=== PATIENT | male | born 2000 | race Hispanic/Latino ===

== ENCOUNTER 2020-05-22 08:44 | Emergency (ER) | payer SELFPAY, OTHER ==
--- NOTE | 2020-05-22 11:01 | RAD REPORT ---
EXAM DESCRIPTION: Meryl Single View05/22/2020 10:54 am CLINICAL HISTORY: cough COMPARISON: 2010 FINDINGS: The lungs appear clear of acute infiltrate. The heart is normal size IMPRESSION: No acute abnormalities displayed
--- NOTE | 2020-05-22 11:09 | ER ---
Nurse's Notes [facility] Name: Jan Eugene Age: 19 yrs Sex: Male : 2000 Arrival Date: 05/22/2020 Time: 08:48 Bed 13 Private MD: Diagnosis: Acute upper respiratory infection, unspecified Presentation: 05/22 08:50 Chief complaint:. Chief complaint: Patient states: cough, shortness of breath on dm5 exertion, chest pain with deep inspiration, malaise, fever for 8 days. Coronavirus screen: Patient reports a cough. Patient reports shortness of breath or difficulty breathing. Patient reports a measured and/or subjective temperature greater than 100.4F. Patient denies travel on a cruise ship or to a country the [facility] currently lists as an affected area. Patient denies contact with known and/or suspected case of COVID-19. Ebola Screen: Patient negative for fever greater than or equal to 101.5 degrees Fahrenheit, and additional compatible Ebola Virus Disease symptoms Patient denies exposure to infectious person. Patient denies travel to an Ebola-affected area in the 21 days before illness onset. No symptoms or risks identified at this time. Initial Sepsis Screen: Does the patient meet any 2 criteria? No. Patient's initial sepsis screen is negative. Does the patient have a suspected source of infection? No. Patient's initial sepsis screen is negative. Risk Assessment: Do you want to hurt yourself or someone else? Patient reports no desire to harm self or others. Onset of symptoms was May 14, 2020. 08:50 Method Of Arrival: Ambulatory dm5 08:50 Acuity: NITIN 3 dm5 Triage Assessment: 08:57 General: Appears uncomfortable, Behavior is calm, cooperative. Pain: Denies pain. dm5 Historical: - Allergies: 08:57 No Known Allergies; dm5 - Home Meds: 08:57 None [Active]; dm5 - PMHx: 08:57 None; dm5 - PSHx: 08:57 None; dm5 - Immunization history:: Adult Immunizations up to date. - Social history:: Smoking status: Patient denies any tobacco usage or history of. Screenin:15 Abuse screen: Denies threats or abuse. Denies injuries from another. Nutritional ss screening: No deficits noted. Tuberculosis screening: Never had TB. Fall Risk None identified. Assessment: 09:15 General: Appears in no apparent distress. comfortable, Behavior is calm, cooperative, ss Reports feeling ill for x8 days. Pain: Denies pain. Neuro: Level of Consciousness is awake, alert, obeys commands, Oriented to person, place, time, situation. Cardiovascular: Capillary refill < 3 seconds is brisk in bilateral fingers. Respiratory: Reports cough that is dry, persistent since x 8 days pain with cough pain with respiration deep inspiration Airway is patent Respiratory effort is even, unlabored, Respiratory pattern is regular, symmetrical. Respiratory: Reports shortness of breath x 8 days, on exertion. GI: Patient currently denies diarrhea, nausea, vomiting. EENT: Oral mucosa is moist. Derm: Skin is intact, is healthy with good turgor, Skin is pink, warm \T\ dry. normal. Musculoskeletal: Circulation, motion, and sensation intact. Range of motion: intact in all extremities, Swelling absent. 11:00 Reassessment: Patient appears in no apparent distress at this time. Patient and/or em family updated on plan of care and expected duration. Pain level reassessed. Patient is alert, oriented x 3, equal unlabored respirations, skin warm/dry/pink. Vital Signs: 08:50 BP 115 / 70; Pulse 118; Resp 22; Temp 97.0; Pulse Ox 97% ; Weight 153.31 kg; Height 6 dm5 ft. 2 in. (187.96 cm); Pain 0/10; 08:50 Body Mass Index 43.40 (153.31 kg, 187.96 cm) dm5 ED Course: 08:48 Patient arrived in ED. mr 08:49 Alena Garner FNP-C [facility]. kb 08:49 Jorge Lerma MD is Attending Physician. kb 08:57 Triage completed. dm5 08:57 Arm band placed on right wrist. dm5 09:15 Patient has correct armband on for positive identification. Bed in low position. Call ss light in reach. 09:35 Chan Yun, RN is Primary Nurse. em 11:23 No provider procedures requiring assistance completed. Patient did not have IV access em during this emergency room visit. 14:23 Health Dept notified/ PUI # [phone] / [place] in lab notified. eb Administered Medications: No medications were administered Outcome: 11:08 Discharge ordered by . juanita 11:23 Discharged to home ambulatory. em 11:23 Condition: good 11:23 Discharge instructions given to patient, Instructed on discharge instructions, follow up and referral plans. Demonstrated understanding of instructions, follow-up care. 11:24 Patient left the ED. em Signatures: Alena Garner, CROWN ASSEMBLY MACHINE SET UP MECHANIC-C CROWN ASSEMBLY MACHINE SET UP MECHANIC-Mariya Lopez RN RN Fanny Wolf Edgar, RN RN Trini Minor RN RN Fatna Bailon
--- NOTE | 2020-05-22 11:09 | EDPHYS ---
Physician Documentation [facility] Name: Jan Eugene Age: 19 yrs Sex: Male : 2000 Arrival Date: 05/22/2020 Time: 08:48 Bed 13 Private MD: ED Physician Jorge Lerma HPI: 05/22 09:20 This 19 yrs old Male presents to ER via Ambulatory with complaints of Cough, kb R/O COVID. 09:20 The patient or guardian reports cough, that is intermittent, described as moderate, kb with no sputum, difficulty breathing, flu symptoms, arthralgias, low-grade fever, myalgias. Onset: The symptoms/episode began/occurred 8 day(s) ago. Severity of symptoms: At their worst the symptoms were moderate, in the emergency department the symptoms are unchanged. Modifying factors: The symptoms are alleviated by nothing, the symptoms are aggravated by nothing. Associated signs and symptoms: Pertinent positives: fever, Pertinent negatives: chest pain, diarrhea, ear ache, nausea, rhinorrhea, sore throat, vomiting. The patient has not experienced similar symptoms in the past. The patient has not recently seen a physician. Historical: - Allergies: 08:57 No Known Allergies; dm5 - Home Meds: 08:57 None [Active]; dm5 - PMHx: 08:57 None; dm5 - PSHx: 08:57 None; dm5 - Immunization history:: Adult Immunizations up to date. - Social history:: Smoking status: Patient denies any tobacco usage or history of. ROS: 09:18 ENT: Negative for injury, pain, and discharge, Neck: Negative for injury, pain, and kb swelling, Abdomen/GI: Negative for abdominal pain, nausea, vomiting, diarrhea, and constipation, Back: Negative for injury and pain, MS/Extremity: Negative for injury and deformity, Skin: Negative for injury, rash, and discoloration, Neuro: Negative for headache, weakness, numbness, tingling, and seizure. 09:18 Constitutional: Positive for body aches, chills, fatigue, fever, malaise. 09:18 Cardiovascular: Positive for chest pain, with cough, Negative for edema, orthopnea, palpitations, paroxysmal nocturnal dyspnea. 09:18 Respiratory: Positive for cough, dyspnea on exertion, shortness of breath, Negative for hemoptysis, orthopnea, pleurisy, sputum production, wheezing. Exam: 09:20 Head/Face: Normocephalic, atraumatic. Neck: Trachea midline, no thyromegaly or masses kb palpated, and no cervical lymphadenopathy. Supple, full range of motion without nuchal rigidity, or vertebral point tenderness. No Meningismus. Chest/axilla: Normal chest wall appearance and motion. Nontender with no deformity. No lesions are appreciated. Cardiovascular: Regular rate and rhythm with a normal S1 and S2. No gallops, murmurs, or rubs. Normal PMI, no JVD. No pulse deficits. Respiratory: Lungs have equal breath sounds bilaterally, clear to auscultation and percussion. No rales, rhonchi or wheezes noted. No increased work of breathing, no retractions or nasal flaring. Abdomen/GI: Soft, non-tender, with normal bowel sounds. No distension or tympany. No guarding or rebound. No evidence of tenderness throughout. Skin: Warm, dry with normal turgor. Normal color with no rashes, no lesions, and no evidence of cellulitis. MS/ Extremity: Pulses equal, no cyanosis. Neurovascular intact. Full, normal range of motion. Neuro: Awake and alert, GCS 15, oriented to person, place, time, and situation. Cranial nerves II-XII grossly intact. Motor strength 5/5 in all extremities. Sensory grossly intact. Cerebellar exam normal. Normal gait. 09:20 Constitutional: The patient appears alert, awake, uncomfortable. Vital Signs: 08:50 BP 115 / 70; Pulse 118; Resp 22; Temp 97.0; Pulse Ox 97% ; Weight 153.31 kg; Height 6 dm5 ft. 2 in. (187.96 cm); Pain 0/10; 08:50 Body Mass Index 43.40 (153.31 kg, 187.96 cm) dm5 MDM: 08:58 Patient medically screened. kb 09:17 Data reviewed: vital signs, nurses notes. Data interpreted: Pulse oximetry: on room air kb is 97 %. Interpretation: normal. Counseling: I had a detailed discussion with the patient and/or guardian regarding: the historical points, exam findings, and any diagnostic results supporting the discharge/admit diagnosis, radiology results, the need for outpatient follow up, a family practitioner, to return to the emergency department if symptoms worsen or persist or if there are any questions or concerns that arise at home. 07 08:59 Order name: COVID-19 kb 05/22 08:59 Order name: Chest Pa And Lat (2 Views) XRAY kb 05/22 11:02 Order name: RAD; Complete Time: 11:08 EDMS Administered Medications: No medications were administered Disposition: 05/22/20 11:08 Discharged to Home. Impression: Acute upper respiratory infection, unspecified. - Condition is Stable. - Discharge Instructions: Viral Respiratory Infection, [id number], COVID-19. - Medication Reconciliation Form, Thank You Letter, Antibiotic Education, Prescription Opioid Use form. - Follow up: Emergency Department; When: As needed; Reason: Worsening of condition. Follow up: Private Physician; When: 2 - 3 days; Reason: Recheck today's complaints, Continuance of care, Re-evaluation by your physician. Addendum: 05/24/2020 07:29 Addendum: Pt contacted at 072 to notify of positive COVID-19 test results, feeling r n better, now on day 9 of illness, questions answered, [facility] health department will be contacting for further instructions and documentation. . 05/26/2020 16:25 Co-signature as Attending Physician, Jorge Lerma MD I agree with the assessment and k dr plan of care. Signatures: Dispatcher [employer] EDAlena Alcala, CAKE TESTER-C CAKE TESTER-CkMariya Dickens, RN RN dm5 Jorge Lerma MD MD [facility] Chan Yun RN RN Hernan Malagon MD MD hand ornament maker: (The following items were deleted from the chart) 05/22 11:24 11:08 05/22/2020 11:08 Discharged to Home. Impression: Acute upper respiratory em infection, unspecified. Condition is Stable. Forms are Medication Reconciliation Form, Thank You Letter, Antibiotic Education, Prescription Opioid Use. Follow up: Emergency Department; When: As needed; Reason: Worsening of condition. Follow up: Private Physician; When: 2 - 3 days; Reason: Recheck today's complaints, Continuance of care, Re-evaluation by your physician. kb
[2020-05-22 11:30] VITALS: BP 115/70; TEMP 97; O2SAT 97
== END 2020-05-22 11:24 | disposition home or self-care (01) ==
LOC: ER 08:44
DX: U07.1 COVID-19 (principal); J98.8 Other specified respiratory disorders
CPT/HCPCS: 71045; 99281; U0001

== ENCOUNTER 2020-05-25 15:56 | Inpatient (IN) | payer SELFPAY, OTHER ==
[2020-05-25 17:18] LABS: Absolute Lymphocytes (CBC) 0.7 K/uL (0.7-4.9); Basophils % 0.1 % (0-1.3); Hematocrit 43.4 % (39.6-49.0); Lymphocytes % 3.1 % (15.3-44.8); MPV 7.7 fL (7.6-11.3); RBC Red Blood Cell Count 4.98 M/uL (4.33-5.43)
[2020-05-25 17:35] LABS: Protime INR 1.16
--- NOTE | 2020-05-25 17:35 | ER ---
Nurse's Notes [facility] Name: Jan Eugene Age: 19 yrs Sex: Male : 2000 Arrival Date: 05/25/2020 Time: 15:57 Bed 20 Private MD: Diagnosis: Pneumonia, unspecified organism;Coronavirus infection, unspecified;Sepsis, unspecified organism;Hypoxemia Presentation: 05/25 16:31 Chief complaint: Patient states: Covid-19 positive. SOB since last night. states, "I ca1 feel like my throat is closing and I can't take deep breaths". Coronavirus screen: Surgical mask placed on patient. Patient moved to private room, placed in contact and droplet isolation with eye protection until further assessment. Patient reports a cough. Patient reports shortness of breath or difficulty breathing. Patient reports a measured and/or subjective temperature greater than 100.4F. Patient denies travel on a cruise ship or to a country the [facility] currently lists as an affected area. Patient denies contact with known and/or suspected case of COVID-19. Ebola Screen: Patient negative for fever greater than or equal to 101.5 degrees Fahrenheit, and additional compatible Ebola Virus Disease symptoms Patient denies exposure to infectious person. Patient denies travel to an Ebola-affected area in the 21 days before illness onset. No symptoms or risks identified at this time. Initial Sepsis Screen: Does the patient meet any 2 criteria? RR > 20 per min. Temp <36.0*C (96.8*F)) or > 38.3*C (100.9*F). HR > 90 bpm. Does the patient have a suspected source of infection? Yes: Productive cough/pneumonia. Risk Assessment: Do you want to hurt yourself or someone else? Patient reports no desire to harm self or others. Onset of symptoms was May 25, 2020. 16:31 Acuity: NITIN 2 ca1 16:31 Method Of Arrival: Ambulatory ca1 Historical: - Allergies: 16:34 No Known Allergies; ca1 - Home Meds: 16:34 None [Active]; ca1 - PMHx: 16:34 None; ca1 - PSHx: 16:34 None; ca1 - Immunization history:: Adult Immunizations up to date. - Social history:: Smoking status: Patient denies any tobacco usage or history of. - Family history:: not pertinent. - Hospitalizations: : No recent hospitalization is reported. Screenin:32 Abuse screen: Denies threats or abuse. Denies injuries from another. Nutritional ls4 screening: No deficits noted. Tuberculosis screening: No symptoms or risk factors identified. Fall Risk None identified. Assessment: 16:32 General: Appears uncomfortable, ill, Behavior is anxious, flat. Pain: Denies pain. ls4 Cardiovascular: Capillary refill < 3 seconds Clubbing of nail beds is absent Pulses are all present. Edema is absent. Rhythm is sinus tachycardia Chest pain is denied. Respiratory: Airway is patent Respiratory effort is labored, with nasal flaring, with retractions, Respiratory pattern is hyperventilation tachypnea Derm: Skin is intact, is healthy with good turgor, Skin is clammy, Skin is pale, Skin temperature is warm. Vital Signs: 16:31 BP 124 / 92; Pulse 127; Resp 24; Temp 103.2(O); Pulse Ox 89% on R/A; Weight 149.69 kg ca1 (R); Height 6 ft. 2 in. (187.96 cm) (R); 16:31 Body Mass Index 42.37 (149.69 kg, 187.96 cm) ca1 ED Course: 15:57 Patient arrived in ED. as 16:30 No provider procedures requiring assistance completed. 4 16:30 Initial lab(s) drawn, by engineering lab technician, sent to lab. First set of blood cultures drawn by [facility] lab staff. Second set of blood cultures drawn by lab staff. EKG done, by ED staff, reviewed by Hernan Malagon MD X-ray(s) taken. Inserted saline lock: 18 gauge in right antecubital area, using aseptic technique. Patient maintains SpO2 saturation greater than 95% on room air. 16:32 Hernan Malagon MD is Attending Physician. rn 16:32 Patient has correct armband on for positive identification. Bed in low position. Call [facility] light in reach. Side rails up X 1. campus monitor on. Pulse ox on. NIBP on. 16:33 Triage completed. ca1 16:34 Arm band placed on right wrist. ca1 17:28 CXR XRAY In Process Unspecified. EDMS 17:33 René Lopes DO is Hospitalizing Provider. rn 17:34 Ronna Huang RN is Primary Nurse. ls4 05/26 07:05 Inserted saline lock: 20 gauge in right forearm, using aseptic technique. Blood ds4 collected. Administered Medications: 05/25 16:42 Drug: NS 0.9% 500 ml Route: IV; Rate: bolus; Site: right antecubital; ls4 18:36 Follow up: IV Status: Completed infusion; IV Intake: 500ml ls4 17:31 Drug: Tylenol 1000 mg Route: PO; ls4 18:00 Follow up: Response: No adverse reaction; Marked relief of symptoms; Temperature is ls4 decreased 17:32 Drug: Decadron - Dexamethasone 10 mg Route: IVP; Site: right antecubital; ls4 17:45 Follow up: Response: No adverse reaction; Marked relief of symptoms ls4 17:36 Drug: LevaQUIN 500 mg Volume: 100 ml; Route: IVPB; Infused Over: 60 mins; Site: right ls4 antecubital; 18:36 Follow up: IV Status: Completed infusion; IV Intake: 100ml ls4 Intake: 18:36 IV: 100ml; Total: 100ml. ls4 18:36 IV: 500ml; Total: 600ml. ls4 Outcome: 17:34 Decision to Hospitalize by Provider. rn 19:00 Discharged to ER Mercedes bueno assumes pt care ls4 19:00 Condition: good 05/27 10:58 Patient left the ED. em1 Signatures: Dispatcher [employer] Char Torres Roman, MD MD rn Martinez, Polo em1 Socrates Armenta ds4 Ronna Huang RN RN ls4 Cassy Sawyer RN RN ca1
--- NOTE | 2020-05-25 17:35 | EDPHYS ---
Physician Documentation [facility] Name: Jan Eugene Age: 19 yrs Sex: Male : 2000 Arrival Date: 05/25/2020 Time: 15:57 Bed 20 Private MD: ED Physician Hernan Malagon HPI: 05/25 17:16 This 19 yrs old Male presents to ER via Ambulatory with complaints of rn Shortness Of Breath - covid+, Anxiety. 17:16 The patient has shortness of breath at rest, with light activity. Onset: The rn symptoms/episode began/occurred yesterday. Duration: The symptoms are continuous. The patient's shortness of breath is aggravated by exertion, light activity, talking, walking. Severity of symptoms: At their worst the symptoms were moderate in the emergency department the symptoms are unchanged. The patient has not experienced similar symptoms in the past. Reports diagnosed with COVID after ER visit here recently, reports now day 10 of illness, was feeling better until last night, fever spiked and increased sob with productive cough. . Historical: - Allergies: 16:34 No Known Allergies; ca1 - Home Meds: 16:34 None [Active]; ca1 - PMHx: 16:34 None; ca1 - PSHx: 16:34 None; ca1 - Immunization history:: Adult Immunizations up to date. - Social history:: Smoking status: Patient denies any tobacco usage or history of. - Family history:: not pertinent. - Hospitalizations: : No recent hospitalization is reported. 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 Exam: 17:16 Constitutional: This is a well developed, well nourished patient who is awake, alert, rn ent to room, look slike doesn't feel well Head/Face: Normocephalic, atraumatic. Eyes: Pupils equal round and reactive to light, extra-ocular motions intact. ENT: dry MM, no stridor Cardiovascular: Tachycardic, regular Respiratory: + tachypnea with labored breathing, no retractions Skin: Warm, dry MS/ Extremity: Pulses equal, no cyanosis. Neuro: Awake and alert, GCS 15 Vital Signs: 16:31 BP 124 / 92; Pulse 127; Resp 24; Temp 103.2(O); Pulse Ox 89% on R/A; Weight 149.69 kg ca1 (R); Height 6 ft. 2 in. (187.96 cm) (R); 16:31 Body Mass Index 42.37 (149.69 kg, 187.96 cm) ca1 MDM: 16:32 Patient medically screened. rn 17:30 Differential diagnosis: pneumonia, COVID, sepsis. Data reviewed: vital signs, nurses rn notes, lab test result(s), radiologic studies, plain films, and as a result, I will admit patient. Test interpretation: by ED physician or midlevel provider: plain radiologic studies, CXR with multifocal pneumonia, more prominent right periphery. Counseling: I had a detailed discussion with the patient and/or guardian regarding: the historical points, exam findings, and any diagnostic results supporting the discharge/admit diagnosis, lab results, radiology results, the need for further work-up and treatment in the hospital. Response to treatment: the patient's symptoms have mildly improved after treatment, and as a result, I will admit patient. Admission orders: after a detailed discussion of the patient's condition and case, the admit orders are written by me. ED course: Pt with worsening symptoms, obvious worsening of cxr, 24k wbc, + need for oxygen, will admit to Dr. Lopes. . 05/25 16:34 Order name: Blood Culture Adult (2) rn 05/25 16:34 Order name: BMP; Complete Time: 17:46 rn 05/25 16:34 Order name: C-Reactive Protein; Complete Time: 17:46 rn 05/25 16:34 Order name: CBC with Diff; Complete Time: 18:46 rn 05/25 16:34 Order name: D-Dimer; Complete Time: 18:46 rn 05/25 16:34 Order name: Ferritin; Complete Time: 17:46 rn 05/25 16:34 Order name: Lactate; Complete Time: 17:46 rn 05/25 16:34 Order name: LFT's; Complete Time: 17:46 rn 05/25 16:34 Order name: Procalcitonin; Complete Time: 18:46 rn 05/25 16:34 Order name: PT-INR; Complete Time: 18:46 rn 05/25 16:34 Order name: Ptt, Activated; Complete Time: 18:46 rn 05/25 16:34 Order name: Troponin (emerg Dept Use Only); Complete Time: 17:46 rn 05/25 17:26 Order name: CBC Smear Scan; Complete Time: 18:46 EDMS 05/25 22:10 Order name: Lactate Sepsis 2 HR Follow-up EDMS 05/25 16:34 Order name: CXR XRAY; Complete Time: 17:46 rn 05/26 07:37 Order name: Basic Metabolic Panel EDMS 05/26 07:37 Order name: Magnesium EDMS 05/26 08:56 Order name: CBC with Automated Diff EDMS 05/26 10:00 Order name: Manual Differential EDMS 05/26 13:18 Order name: Gram Stain--Aerobic Bottle EDMS 05/26 13:20 Order name: Gram Stain--Aerobic Bottle EDMS 05/26 14:32 Order name: Type and Screen EDMS 05/26 15:23 Order name: ABO/RH no charge EDMS 05/26 20:34 Order name: Gram Stain--Anaerobic Bottle EDMS 05/27 05:56 Order name: Basic Metabolic Panel EDMS 05/27 05:56 Order name: Magnesium EDMS 05/27 06:03 Order name: CBC with Automated Diff EDMS 05/25 16:34 Order name: EKG; Complete Time: 16:35 rn 05/25 16:34 Order name: Cardiac monitoring; Complete Time: 19:48 rn 05/25 16:34 Order name: Droplet/Contact Precautions; Complete Time: 19:48 rn 05/25 16:34 Order name: EKG - Nurse/Tech; Complete Time: 19:48 rn 05/25 16:34 Order name: IV Start; Complete Time: 19:48 rn 05/25 16:34 Order name: Labs collected and sent; Complete Time: 19:48 rn 05/25 16:34 Order name: O2 Per Protocol; Complete Time: 19:57 rn 05/25 16:34 Order name: O2 Sat Monitoring; Complete Time: 23:09 rn Administered Medications: 16:42 Drug: NS 0.9% 500 ml Route: IV; Rate: bolus; Site: right antecubital; ls4 18:36 Follow up: IV Status: Completed infusion; IV Intake: 500ml ls4 17:31 Drug: Tylenol 1000 mg Route: PO; ls4 18:00 Follow up: Response: No adverse reaction; Marked relief of symptoms; Temperature is ls4 decreased 17:32 Drug: Decadron - Dexamethasone 10 mg Route: IVP; Site: right antecubital; ls4 17:45 Follow up: Response: No adverse reaction; Marked relief of symptoms ls4 17:36 Drug: LevaQUIN 500 mg Volume: 100 ml; Route: IVPB; Infused Over: 60 mins; Site: right ls4 antecubital; 18:36 Follow up: IV Status: Completed infusion; IV Intake: 100ml ls4 Disposition: 05/25/20 17:34 Hospitalization ordered by René Lopes for Inpatient Admission. Preliminary diagnosis are Pneumonia, unspecified organism, Coronavirus infection, unspecified, Sepsis, unspecified organism, Hypoxemia. - Bed requested for Telemetry/MedSurg (Inpatient). - Status is Inpatient Admission. em1 - Condition is Stable. - Problem is an ongoing problem. - Symptoms have worsened. Signatures: Dispatcher [employer] EDMS Fernanda Nuñez RN RN kl Williams, Irene, RN RN iw Nieto, Roman, MD MD rn Martinez, Polo em1 Denise Echevarria RN RN cg Stewart, Lisa, RN RN ls4 Cassy Sawyer RN RN ca1 Corrections: (The following items were deleted from the chart) 05/26 00:18 05/25 17:34 Hospitalization Ordered by René Lopes DO for Inpatient Admission. cg Preliminary diagnosis is Pneumonia, unspecified organism; Coronavirus infection, unspecified; Sepsis, unspecified organism; Hypoxemia. Bed requested for Telemetry/MedSurg (Inpatient). Status is Inpatient Admission. Condition is Stable. Problem is an ongoing problem. Symptoms have worsened. randall 05/27 04:42 05/26 00:18 05/25/2020 17:34 Hospitalization Ordered by René Lopes DO for Inpatient cg Admission. Preliminary diagnosis is Pneumonia, unspecified organism; Coronavirus infection, unspecified; Sepsis, unspecified organism; Hypoxemia. Bed requested for [facility] ER HOLD. Status is Inpatient Admission. Condition is Stable. Problem is an ongoing problem. Symptoms have worsened. cg 0714 05:32 04:42 05/25/2020 17:34 Hospitalization Ordered by René Lopes DO for Inpatient cg Admission. Preliminary diagnosis is Pneumonia, unspecified organism; Coronavirus infection, unspecified; Sepsis, unspecified organism; Hypoxemia. Bed requested for [facility] ER HOLD. Status is Inpatient Admission. Condition is Stable. Problem is an ongoing problem. Symptoms have worsened. cg 09:18 05:32 05/25/2020 17:34 Hospitalization Ordered by René Lopes DO for Inpatient kl Admission. Preliminary diagnosis is Pneumonia, unspecified organism; Coronavirus infection, unspecified; Sepsis, unspecified organism; Hypoxemia. Bed requested for [facility] ER HOLD. Status is Inpatient Admission. Condition is Stable. Problem is an ongoing problem. Symptoms have worsened. 10:51 09:18 05/25/2020 17:34 Hospitalization Ordered by René Lopes DO for Inpatient iw Admission. Preliminary diagnosis is Pneumonia, unspecified organism; Coronavirus infection, unspecified; Sepsis, unspecified organism; Hypoxemia. Bed requested for Telemetry/MedSurg (Inpatient). Status is Inpatient Admission. Condition is Stable. Problem is an ongoing problem. Symptoms have worsened. kl 10:58 10:51 05/25/2020 17:34 Hospitalization Ordered by René Lopes DO for Inpatient em1 Admission. Preliminary diagnosis is Pneumonia, unspecified organism; Coronavirus infection, unspecified; Sepsis, unspecified organism; Hypoxemia. Bed requested for Telemetry/MedSurg (Inpatient). Status is Inpatient Admission. Condition is Stable. Problem is an ongoing problem. Symptoms have worsened. iw
--- NOTE | 2020-05-25 17:40 | RAD REPORT ---
EXAM DESCRIPTION: RHIANNAFlavio Single View05/25/2020 5:28 pm CLINICAL HISTORY: Shortness of breath COMPARISON: May 22, 2012 FINDINGS: Suboptimal examination secondary to respiratory motion artifact The heart is normal size IMPRESSION: Suboptimal examination secondary to respiratory motion artifact. Repeat chest x-ray david mmended
[2020-05-25 17:44] LABS: ALT/SGPT 53 U/L (12-78); AST/SGOT 42 U/L (15-37); Albumin 3.3 g/dL (3.4-5.0); Alkaline Phosphatase 59 U/L (45-117); BUN Blood Urea Nitrogen 7 mg/dL (7-18); Bicarbonate 27 mmol/L (21-32); Bilirubin Direct 0.2 mg/dL (0-0.2); Bilirubin Total 0.5 mg/dL (0.2-1.0); Ferritin 816.8 ng/mL (26-388); Glucose Level 116 mg/dL (74-106); Potassium 3.3 mmol/L (3.5-5.1); Protein, Total 8.4 g/dL (6.4-8.2); Sodium Level 139 mmol/L (136-145); Troponin (Emerg Dept Use Only) < 0.02 ng/mL (0.0-0.045)
[2020-05-25] MEDS ORDERED: dexAMETHasone 10 MG/ML VIAL ONE (17:50)
[2020-05-25] MEDS ORDERED: ACETAMINOPHEN 500 MG TAB ONE (17:50)
[2020-05-25] MEDS ORDERED: NA CHLORIDE 0.9% 500 ML ONE (17:51)
[2020-05-25] MEDS ORDERED: Levofloxacin500mg IV 500 MG/100 ML BAG IV ONE (17:51)
[2020-05-25 18:11] LABS: Platelet Estimate INCR; Urine White Blood Cell Casts OK
[2020-05-25 18:12] LABS: Blood Morphology Comment NOT SEEN (NOT SEEN)
--- NOTE | 2020-05-25 18:13 | P.HP ---
Certification for Inpatient Patient admitted to: Inpatient With expected LOS: >2 Midnights Patient will require the following post-hospital care: None Practitioner: I am a practitioner with admitting privileges, knowledge of patient current condition, hospital course, and medical plan of care. Services: Services provided to patient in accordance with Admission requirements found in Title 42 Section 412.3 of the Code of Federal Regulations Patient History Date of Service: 05/25/20 Primary Care Provider: none Reason for admission: Shortness of breath History of Present Illness: 19-year-old male presented to the emergency room with increased shortness of breath, fever and increased fatigue. Patient reports having shortness of breath, cough and COVID like symptoms for the past 10 days. He was seen in the ER a couple days ago. Chest x-ray at that time was unremarkable. Patient was sent home but a swab for COVID was obtained. He tested positive and his results were called left a heme yesterday. At that time he did not mention any significant shortness of breath. Overnite shortness of breaths has gotten worse. He has had increased fever, chills, and shortness of breath. Patient denies any significant nausea, vomiting or abdominal pain. He denies any constipation or diarrhea. Patient came to the ER for further evaluation. In the ER patient was tachypneic, tachycardic and had a fever of 103. Patient appeared in distress. Initial room-air saturations around 89%. White count was elevated. D-dimer slightly elevated at 520. Chest x-ray shows bilateral viral pneumonia. Patient admitted for further evaluation and treatment. When I saw the patient ER, mild distress noted. Patient had fever. Some shortness of breath noted. Patient did not appear septic at this time. Home medications list reviewed: No - Past Medical/Surgical History Diabetic: No -: Left ankle surgery Psychosocial/ Personal History: Patient lives at home - Family History Family History: Reviewed- Non-Contributory - Social History Smoking Status: Never smoker Alcohol use: No CD- Drugs: No Caffeine use: Yes Place of Residence: Home Review of Systems General: Fever, Chills, Sweats, Weakness, Malaise, As per HPI Eyes: Unremarkable ENT: Nose Congestion, As per HPI Respiratory: Cough, Shortness of Breath, SOB with Excertion, As per HPI Cardiovascular: Unremarkable Gastrointestinal: Unremarkable Genitourinary: Unremarkable Musculoskeletal: Unremarkable Integumentary: Unremarkable Neurological: Unremarkable Lymphatics: Unremarkable Physical Examination - Physical Exam General: Alert, Oriented x3, Cooperative, Mild distress (Mild distress with noted sweats) HEENT: Atraumatic Neck: Supple Respiratory: Diminished (Bilateral diminished) Cardiovascular: Abnormal pulses (Sinus tachycardia) Gastrointestinal: Normal bowel sounds, Soft and benign, Non-distended, No tenderness, No masses, No rebound, No guarding Musculoskeletal: No erythema, No tenderness, No warmth Integumentary: No tenderness/swelling, No erythema, No warmth, No cyanosis Neurological: Normal speech, Normal strength at 5/5 x4 extr, Normal tone, Normal affect - Studies Laboratory Data (last 24 hrs) 05/25/20 17:01: PT 13.6 H, INR 1.16, APTT 32.8 05/25/20 17:01: WBC 23.8 H*, Hgb 14.6, Hct 43.4, Plt Count 421 H 05/25/20 17:01: Sodium 139, Potassium 3.3 L, BUN 7, Creatinine 1.02, Glucose 116 H, Total Bilirubin 0.5, AST 42 H, ALT 53, Alkaline Phosphatase 59 Assessment and Plan - Plan Impression: Shortness of breath, fever, leukocytosis, hypoxia a secondary to bilateral viral pneumonia with positive COVID 19 Plan: Patient will be admitted for further evaluation and treatment. Will continue with IV Levaquin, IV Decadron and oxygen to maintain sats above 93%. Will consider high-flow oxygen or BiPAP if the patient continues to desaturate. Will provide medication for fever, nausea. Will also provide zinc, folic acid and medication for cough. Patient will be placed on DVT prophylaxis. Will consult pulmonology for further recommendation. Anticipate improvement over the next 24-48 hr. Will need to consider, less in plasma if no significant change. Will monitor the patient closely. Will recheck lab in 48 hr. Discharge Plan: Home Plan to discharge in: 72 Hours - Advance Directives Does patient have a Living Will: No Does patient have a Durable POA for Healthcare: No - Code Status/Comfort Care Code Status Assessed: Yes (Patient is full code) Time Spent Managing Pts Care (In Minutes): 55
[2020-05-25] MEDS ORDERED: ONDANSETRON 4 MG/2 ML VIAL IV PRN (21:12)
[2020-05-25] MEDS ORDERED: Levofloxacin 750mg IV 750 MG/150 ML BAG IV SCH (21:12)
[2020-05-25] MEDS ORDERED: IBUPROFEN 200 MG TAB PO PRN (21:12)
[2020-05-25] MEDS ORDERED: ACETAMINOPHEN 325 MG TABLET PO PRN (21:18)
[2020-05-25 22:29] VITALS: BMI 42.3
[2020-05-25] MEDS ORDERED: NA CHLORIDE 0.9% 500 ML IV ONE (22:44)
[2020-05-25] MEDS: NA CHLORIDE 0.9% 1,000 ML IV SCH (23:23)
[2020-05-26] MEDS: dexAMETHasone 10 MG/ML VIAL IV SCH ×3 (00:40→17:00)
[2020-05-26] MEDS ORDERED: dexAMETHasone 4 MG/ML VIAL ONE ×3 (00:53→18:39)
[2020-05-26] MEDS: guaiFENesin 100 MG/5 ML UCUP PO PRN ×2 (02:00→23:12)
[2020-05-26] MEDS ORDERED: IBUPROFEN 200 MG TAB PO ONE (02:02)
[2020-05-26] MEDS ORDERED: NA CHLORIDE 0.9% 1,000 ML ONE ×2 (03:44→08:43)
[2020-05-26] MEDS: NA CHLORIDE 0.9% 1,000 ML IV SCH (07:00)
[2020-05-26 07:36] LABS: BUN Blood Urea Nitrogen 9 mg/dL (7-18); Bicarbonate 22 mmol/L (21-32); Glucose Level 114 mg/dL (74-106); Sodium Level 142 mmol/L (136-145)
[2020-05-26 07:37] LABS: Magnesium 2.3 mg/dL (1.8-2.4); Potassium 3.8 mmol/L (3.5-5.1)
[2020-05-26] MEDS ORDERED: FOLIC ACID 1 MG TABLET ONE (07:43)
[2020-05-26] MEDS ORDERED: ENOXAPARIN 40 MG/0.4 ML SQ ONE (07:43)
[2020-05-26] MEDS ORDERED: THIAMINE HCL 100 MG TABLET ONE (08:12)
[2020-05-26] MEDS ORDERED: FUROSEMIDE 20 MG/ 2ML VIAL ONE ×2 (08:43→18:38)
[2020-05-26 08:53] LABS: Absolute Lymphocytes (CBC) 0.6 K/uL (0.7-4.9); Basophils % 0.1 % (0-1.3); Hematocrit 40.3 % (39.6-49.0); Lymphocytes % 3.1 % (15.3-44.8); MPV 7.3 fL (7.6-11.3); RBC Red Blood Cell Count 4.61 M/uL (4.33-5.43)
[2020-05-26] MEDS: FOLIC ACID 1 MG TABLET PO SCH (08:54)
[2020-05-26] MEDS: SPIRONOLACTONE 25 MG TABLET PO SCH (08:54)
[2020-05-26] MEDS: ENOXAPARIN 40 MG/0.4 ML SQ SCH (08:54)
[2020-05-26] MEDS: FUROSEMIDE 20 MG/ 2ML VIAL IV SCH ×2 (08:54→17:00)
[2020-05-26] MEDS: ZINC SULFATE 220 MG CAP PO SCH (08:55)
[2020-05-26] MEDS: THIAMINE HCL 100 MG TABLET PO SCH (08:55)
[2020-05-26 09:59] LABS: Blood Morphology Comment NOT SEEN (NOT SEEN); Platelet Estimate ADEQ
--- NOTE | 2020-05-26 11:08 | P.CNS ---
Date of Consult: 05/26/20 Primary Care Provider: none Chief Complaint: Shortness of breath History of Present Illness: Patient is 19 years of age presented emergency room with shortness of breath fever found to be hypoxic and presented to the emergency room a couple of days ago was discharged came back again tested positive for Crohn or virus skilled short of breath the also febrile tachypneic tachycardic Allergies No Known Allergies Allergy (Verified 05/26/20 01:07) Home Medications: NK [No Home Meds] 05/26/20 - Past Medical/Surgical History Diabetic: No -: Left knee surgery Psychosocial/ Personal History: Patient lives at home - Social History Alcohol use: Yes CD- Drugs: No Caffeine use: Yes Place of Residence: Home Review of Systems Respiratory: Shortness of Breath Physical Examination Temp Pulse Resp BP Pulse Ox 99.9 F 99 H 34 H 138/81 94 05/26/20 04:00 05/26/20 08:54 05/26/20 04:00 05/26/20 08:54 05/26/20 04:00 General: Other (Due for) Laboratory Data (last 24 hrs) 05/25/20 17:01: PT 13.6 H, INR 1.16, APTT 32.8 05/25/20 17:01: WBC 23.8 H*, Hgb 14.6, Hct 43.4, Plt Count 421 H 05/25/20 17:01: Sodium 139, Potassium 3.3 L, BUN 7, Creatinine 1.02, Glucose 116 H, Total Bilirubin 0.5, AST 42 H, ALT 53, Alkaline Phosphatase 59 - Problems (1) Pneumonia due to human coronavirus Current Visit: Yes Status: Acute Plan: Patient is 19 years of age admitted from pneumonia due to chan virus vital signs satisfactory is on 4 L nasal cannula oxygen recommend diuretic Dc levofloxacin white count is elevated change to p.o. levofloxacin instead he is hemodynamically stable continue to monitor review discharge tomorrow
--- NOTE | 2020-05-26 18:04 | P.PN ---
Subjective Date of Service: 05/26/20 Primary Care Provider: none Chief Complaint: Shortness of breath Subjective: Improving (Patient improved) Physical Examination - Vital Signs Temperature: 97.1 F Blood Pressure: 124/78 Pulse: 97 Respirations: 31 Pulse Ox (%): 97 - Physical Exam General: Alert, In no apparent distress, Cooperative HEENT: Atraumatic Neck: Supple Respiratory: Other (Less short of breath node) Cardiovascular: Normal pulses Neurological: Normal speech, Normal strength at 5/5 x4 extr, Normal tone, Normal affect - Studies Microbiology Data (last 24 hrs): 05/25/20 17:02 Blood - Blood Blood Culture Gram Stain - Final Medications List Reviewed: Yes Assessment & Plan Discharge Plan: Home Plan to discharge in: 48 Hours Physician Review Additional Text: Impression: Shortness of breath, fever, leukocytosis, hypoxia secondary to bilateral viral pneumonia with positive COVID 19 Plan: Continue current treatment. Options for convalescent plasma offered. Patient has agreed. Will order convalescent plasma. Continue to wean off oxygen. Case discussed with pulmonology. Anticipate improvement over the next 48 hr. Time Spent Managing Pts Care (In Minutes): 55
[2020-05-26] MEDS ORDERED: NA CHLORIDE 0.9% 100 ML IV ONE (22:05)
[2020-05-26] MEDS ORDERED: guaiFENesin 100 MG/5 ML UCUP ONE (22:59)
[2020-05-27] MEDS ORDERED: dexAMETHasone 4 MG/ML VIAL ONE ×2 (01:43→10:00)
[2020-05-27] MEDS: dexAMETHasone 10 MG/ML VIAL IV SCH ×3 (01:50→17:21)
[2020-05-27 05:55] LABS: BUN Blood Urea Nitrogen 14 mg/dL (7-18); Bicarbonate 27 mmol/L (21-32); Glucose Level 126 mg/dL (74-106); Magnesium 2.3 mg/dL (1.8-2.4); Potassium 3.9 mmol/L (3.5-5.1); Sodium Level 144 mmol/L (136-145)
[2020-05-27 06:01] LABS: Absolute Lymphocytes (CBC) 0.9 K/uL (0.7-4.9); Basophils % 0.3 % (0-1.3); Hematocrit 40.2 % (39.6-49.0); MPV 7.4 fL (7.6-11.3); RBC Red Blood Cell Count 4.65 M/uL (4.33-5.43)
[2020-05-27] MEDS ORDERED: POTASSIUM CL SA 10 MEQ TAB PO ONE ×2 (06:21→06:49)
[2020-05-27] MEDS: SPIRONOLACTONE 25 MG TABLET PO SCH (09:00)
[2020-05-27] MEDS: THIAMINE HCL 100 MG TABLET PO SCH (09:00)
[2020-05-27] MEDS: FOLIC ACID 1 MG TABLET PO SCH (09:00)
[2020-05-27] MEDS ORDERED: ACETYLCYST 20% 800 MG/4 ML VIAL PO SCH (09:00)
[2020-05-27] MEDS: levoFLOXacin 500 MG TAB PO SCH (09:00)
[2020-05-27] MEDS: ENOXAPARIN 40 MG/0.4 ML SQ SCH (09:00)
[2020-05-27] MEDS: FUROSEMIDE 20 MG/ 2ML VIAL IV SCH ×2 (09:00→17:20)
[2020-05-27] MEDS: ZINC SULFATE 220 MG CAP PO SCH (09:00)
[2020-05-27] MEDS ORDERED: FUROSEMIDE 20 MG TABLET ONE (09:59)
[2020-05-27] MEDS ORDERED: levoFLOXacin 500 MG TAB ONE (10:00)
[2020-05-27] MEDS ORDERED: ENOXAPARIN 40 MG/0.4 ML SQ ONE (10:00)
[2020-05-27] MEDS ORDERED: FUROSEMIDE 20 MG/ 2ML VIAL ONE (10:00)
[2020-05-27] MEDS ORDERED: THIAMINE HCL 100 MG TABLET ONE (10:00)
--- NOTE | 2020-05-27 12:30 | P.PN ---
Subjective Date of Service: 05/27/20 Primary Care Provider: none Chief Complaint: Pneumonia due to chan virus Subjective: Improving (Patient is improving still hypoxic that is on room air 80 89-90%) Review of Systems General: Weakness Respiratory: Shortness of Breath Physical Examination - Vital Signs Temperature: 98.5 F Blood Pressure: 142/83 Pulse: 82 Respirations: 22 Pulse Ox (%): 94 - Physical Exam General: Other (Deferred) - Studies Microbiology Data (last 24 hrs): 05/25/20 17:02 Blood - Blood Blood Culture Gram Stain - Final Medications List Reviewed: Yes Assessment & Plan - Problems (Diagnosis) (1) Pneumonia due to human coronavirus Current Visit: Yes Status: Acute Plan: Patient admitted from pneumonia added to chan virus also consider convalescent plasma continue with steroids diuretics incentive spirometry BiPAP patient got convalescent plasma
[2020-05-28] MEDS: dexAMETHasone 10 MG/ML VIAL IV SCH ×2 (00:51→07:56)
[2020-05-28 04:20] LABS: Absolute Lymphocytes (CBC) 1.1 K/uL (0.7-4.9); Basophils % 0.3 % (0-1.3); Hematocrit 41.9 % (39.6-49.0); Lymphocytes % 8.4 % (15.3-44.8); MPV 7.3 fL (7.6-11.3); RBC Red Blood Cell Count 4.79 M/uL (4.33-5.43)
[2020-05-28 04:40] LABS: BUN Blood Urea Nitrogen 16 mg/dL (7-18); Bicarbonate 30 mmol/L (21-32); Glucose Level 129 mg/dL (74-106); Magnesium 2.5 mg/dL (1.8-2.4); Sodium Level 141 mmol/L (136-145)
[2020-05-28] MEDS: SPIRONOLACTONE 25 MG TABLET PO SCH (07:56)
[2020-05-28] MEDS: FUROSEMIDE 20 MG/ 2ML VIAL IV SCH (07:57)
[2020-05-28] MEDS: FOLIC ACID 1 MG TABLET PO SCH (07:57)
[2020-05-28] MEDS: levoFLOXacin 500 MG TAB PO SCH (07:57)
[2020-05-28] MEDS: ENOXAPARIN 40 MG/0.4 ML SQ SCH (07:57)
[2020-05-28] MEDS: THIAMINE HCL 100 MG TABLET PO SCH (07:57)
[2020-05-28] MEDS: ZINC SULFATE 220 MG CAP PO SCH (07:57)
[2020-05-28] MEDS ORDERED: dexAMETHasone 4 MG TAB PO SCH (09:00)
[2020-05-28] MEDS ORDERED: ACETYLCYST 20% 800 MG/4 ML VIAL PO SCH (09:00)
[2020-05-28 11:53] VITALS: O2SAT 93
--- NOTE | 2020-05-28 13:26 | P.DS ---
Admission Date: 05/25/20 Discharge Date: 05/28/20 Primary Care Provider: none Disposition: ROUTINE DISCHARGE Discharge Condition: GOOD Reason for Admission: Pneumonia due to chan virus Consultations: Pulmonary-Dr. Pandya Procedures: CXR: FINDINGS: Suboptimal examination secondary to respiratory motion artifact. The heart is normal size IMPRESSION: Suboptimal examination secondary to respiratory motion artifact. Medical Problem List: Shortness of breath, fever, leukocytosis, hypoxia secondary to bilateral viral pneumonia with positive COVID 19 Bacteremia with 3/4 blood cultures for Staph. hominis Brief History of Present Illness: 19-year-old male presented to the emergency room with increased shortness of breath, fever and increased fatigue. Patient reports having shortness of breath, cough and COVID like symptoms for the past 10 days. He was seen in the ER a couple days ago. Chest x-ray at that time was unremarkable. Patient was sent home but a swab for COVID was obtained. He tested positive and his results were called left a heme yesterday. At that time he did not mention any significant shortness of breath. Overnite shortness of breaths has gotten worse. He has had increased fever, chills, and shortness of breath. Patient denies any significant nausea, vomiting or abdominal pain. He denies any constipation or diarrhea. Patient came to the ER for further evaluation. In the ER patient was tachypneic, tachycardic and had a fever of 103. Patient appeared in distress. Initial room-air saturations around 89%. White count was elevated. D-dimer slightly elevated at 520. Chest x-ray shows bilateral viral pneumonia. Patient admitted for further evaluation and treatment. When I saw the patient ER, mild distress noted. Patient had fever. Some shortness of breath noted. Patient did not appear septic at this time. Hospital Course: Patient presented with shortness of breath, fever, leukocytosis hypoxia secondary to bilateral viral pneumonia positive for COVID19. Patient had been diagnosed recently. He had not improved. Patient was admitted for further evaluation and treatment. Blood cultures were obtained. Patient found to have 3/4 blood cultures positive for Staph hominis. Patient was started on antibiotic medication. Patient also seen by pulmonology. Patient received IV steroids, oxygen and supplementation. Patient has significantly improved. Patient still on oxygen. Patient requires oxygen at discharge. Oxygen has been arranged. At discharge she will continue with oxygen-3 L per nasal cannula. This can be weaned off with the help of pulmonology. At discharge patient will continue with prednisone 10 mg 1 pill twice daily for 7 days, zinc 1 pill daily, folic acid 1 pill daily, and thiamine 100 mg daily. For his bacteremia patient will continue with Levaquin 500 mg daily for 10 days. Recommend to recheck blood cultures after that time to monitor resolution. Patient will continue quarantine for 14 days. Patient continue with CDC guidelines, social distance seen, face masks use, and hand washing. Patient will need a follow up with pulmonology in 1-2 weeks to follow up this hospitalization. Recommend to recheck chest x-ray in 2-4 weeks to monitor resolution as well. Patient plans to establish care locally with PCP to further address his condition. Vital Signs/Physical Exam: Temp Pulse Resp BP Pulse Ox 97.2 F 74 20 136/88 94 05/28/20 04:00 05/28/20 04:00 05/28/20 04:00 05/28/20 04:00 05/28/20 04:00 General: Alert, In no apparent distress, Oriented x3, Cooperative HEENT: Atraumatic Neck: Supple Respiratory: Clear to auscultation bilaterally Cardiovascular: Normal pulses, Regular rate/rhythm Neurological: Normal speech, Normal strength at 5/5 x4 extr, Normal tone, Normal affect Laboratory Data at Discharge: WBC 12.6 K/uL (4.3-10.9) H D 05/28/20 03:37 Hgb 14.4 g/dL (13.6-17.9) 05/28/20 03:37 Hct 41.9 % (39.6-49.0) 05/28/20 03:37 Plt Count 580 K/uL (152-406) H 05/28/20 03:37 PT 13.6 SECONDS (9.5-12.5) H 05/25/20 17:01 INR 1.16 05/25/20 17:01 APTT 32.8 SECONDS (24.3-36.9) 05/25/20 17:01 Sodium 141 mmol/L (136-145) 05/28/20 03:37 Potassium 4.0 mmol/L (3.5-5.1) 05/28/20 03:37 BUN 16 mg/dL (7-18) 05/28/20 03:37 Creatinine 0.82 mg/dL (0.55-1.3) 05/28/20 03:37 Glucose 129 mg/dL (74-106) H 05/28/20 03:37 Magnesium 2.5 mg/dL (1.8-2.4) H 05/28/20 03:37 Total Bilirubin 0.5 mg/dL (0.2-1.0) 05/25/20 17:01 AST 42 U/L (15-37) H 05/25/20 17:01 ALT 53 U/L (12-78) 05/25/20 17:01 Alkaline Phosphatase 59 U/L (45-117) 05/25/20 17:01 Home Medications: Folic Acid 1 mg PO DAILY #30 tablet 05/28/20 Thiamine HCl [Vitamin B-1*] 100 mg PO DAILY #30 tablet 05/28/20 Zinc Sulfate [Zinc Sulfate*] 220 mg PO DAILY #30 cap 05/28/20 levoFLOXacin [Levaquin*] 500 mg PO DAILY #10 tab 05/28/20 predniSONE [Deltasone*] 10 mg PO BID #14 tab 05/28/20 New Medications: predniSONE [Deltasone*] 10 mg PO BID #14 tab Folic Acid 1 mg PO DAILY #30 tablet levoFLOXacin [Levaquin*] 500 mg PO DAILY #10 tab Thiamine HCl [Vitamin B-1*] 100 mg PO DAILY #30 tablet Zinc Sulfate [Zinc Sulfate*] 220 mg PO DAILY #30 cap Patient Discharge Instructions: 1. Recommend follow up with PCP in 1 week to follow up this hospitalization. 2. Patient presented with shortness of breath, fever, leukocytosis hypoxia secondary to bilateral viral pneumonia positive for COVID19. Patient had been diagnosed recently. He had not improved. Patient was admitted for further evaluation and treatment. Blood cultures were obtained. Patient found to have 3/4 blood cultures positive for Staph hominis. Patient was started on antibiotic medication. Patient also seen by pulmonology. Patient received IV steroids, oxygen and supplementation. Patient has significantly improved. Patient still on oxygen. Patient requires oxygen at discharge. Oxygen has been arranged. At discharge she will continue with oxygen-3 L per nasal cannula. This can be weaned off with the help of pulmonology. At discharge patient will continue with prednisone 10 mg 1 pill twice daily for 7 days, zinc 1 pill daily, folic acid 1 pill daily, and thiamine 100 mg daily. For his bacteremia patient will continue with Levaquin 500 mg daily for 10 days. Recommend to recheck blood cultures after that time to monitor resolution. Patient will continue quarantine for 14 days. Patient continue with CDC guidelines, social distance seen, face masks use, and hand washing. Patient will need a follow up with pulmonology in 1-2 weeks to follow up this hospitalization. Recommend to recheck chest x-ray in 2-4 weeks to mo nitor resolution as well. Patient plans to establish care locally with PCP to further address his condition. Diet: AHA Activity: Ad neymar Time spent managing pt's care (in minutes): 55
[2020-05-28 15:06] VITALS: BP 112/79; TEMP 97.4
[2020-05-29] MEDS ORDERED: levoFLOXacin 750 MG TAB PO SCH (09:00)
== END 2020-05-28 15:30 | disposition home or self-care (01) | DRG 177 ==
LOC: ER 15:56 → ERHOLD 17:48 → 4TH 05-27 10:44
PROVIDERS: ADMIT Family Medicine; ATTEND Family Medicine
PROC: 8E0ZXY6 Isolation (ICD-10-PCS; principal; 2020-05-25)
PROC: 30233K1 Transfusion of Nonautologous Frozen Plasma into Peripheral Vein, Percutaneous Approach (ICD-10-PCS; 2020-05-26)
DX: U07.1 COVID-19 (principal); J12.89 Other viral pneumonia; R78.81 Bacteremia; D72.829 Elevated white blood cell count, unspecified; R09.02 Hypoxemia; B95.7 Other staphylococcus as the cause of diseases classified elsewhere; R06.82 Tachypnea, not elsewhere classified
CPT/HCPCS: 36415; 71045; 80048; 80076; 82728; 83605; 83735; 84145; 84484; 85025; 85379; 85610; 85730; 86140; 86850; 86900; 86901; 86927; 87040; 87077; 87186; 87205; 93005; 96361; 96365; 96375; 99285; J1100; J1650; J1940; J7030; J7040; J8540